=== PATIENT | male | born 1955 ===

== ENCOUNTER → 2024-12-28 | Outpatient (CLI) | payer MEDICARE ==
[2024-12-28 13:13] LABS: Creatinine, Urine Random 173.0 mg/dL (27.00-270.00); Microalb/Creat Ratio UR, Rand 6.763 mg/g (0.000-30.000); Microalbumin, Random Urine 11.7 mg/L (0.000-20.000)
== END ==
LOC: LAB 10:53 → LAB SHORT 10:53
PROVIDERS: Nurse Practitioner Family
DX: E11.9 Type 2 diabetes mellitus without complications (principal)
CPT/HCPCS: 82043; 82570